=== PATIENT | male | born 1955 | race Caucasian/White ===

== ENCOUNTER 2021-07-28 15:43 | Outpatient (CLI) | payer MEDICARE | END 2021-07-28 15:44 | disposition home or self-care (01) | LOC: BICCT 15:43 | PROVIDERS: ATTEND Family Medicine | DX: Z12.2 Encounter for screening for malignant neoplasm of respiratory organs (principal); F17.210 Nicotine dependence, cigarettes, uncomplicated; J43.9 Emphysema, unspecified; J98.4 Other disorders of lung; I25.10 Atherosclerotic heart disease of native coronary artery without angina pectoris; I70.0 Atherosclerosis of aorta; I05.8 Other rheumatic mitral valve diseases; R91.1 Solitary pulmonary nodule | CPT/HCPCS: 71271 ==

== ENCOUNTER 2022-03-31 10:05 | Outpatient (CLI) | payer MEDICARE ==
[2022-03-31 22:42] LABS: SARS-CoV-2 PCR by NAA Not Detected (NotDetected)
== END 2022-03-31 10:06 | disposition home or self-care (01) ==
LOC: LABBT 10:05
PROVIDERS: ATTEND Internal Medicine Gastroenterology
DX: Z12.11 Encounter for screening for malignant neoplasm of colon (principal); Z20.822 Contact with and (suspected) exposure to COVID-19
CPT/HCPCS: U0003; U0005

== ENCOUNTER 2022-04-05 07:28 | Day surgery (SDC) | payer MEDICARE ==
[2022-03-31 11:19] VITALS: BMI 23.7
[2022-04-05] MEDS ORDERED: PROPOFOL 200 MG/20 ML VIAL ONE (10:22)
[2022-04-05] MEDS ORDERED: Lidocaine 1% PF 5 ML VIAL ONE (10:22)
== END 2022-04-05 12:08 | disposition home or self-care (01) ==
LOC: SDC 07:28
PROVIDERS: ATTEND Internal Medicine Gastroenterology
PROC: 0DBL8ZX Excision of Transverse Colon, Via Natural or Artificial Opening Endoscopic, Diagnostic (ICD-10-PCS; principal; 2022-04-05)
DX: Z12.11 Encounter for screening for malignant neoplasm of colon (principal); D12.3 Benign neoplasm of transverse colon; K57.30 Diverticulosis of large intestine without perforation or abscess without bleeding; K64.8 Other hemorrhoids; I10 Essential (primary) hypertension; G89.29 Other chronic pain; M54.9 Dorsalgia, unspecified; G62.9 Polyneuropathy, unspecified; F17.210 Nicotine dependence, cigarettes, uncomplicated; G47.30 Sleep apnea, unspecified; N40.0 Benign prostatic hyperplasia without lower urinary tract symptoms; Z79.899 Other long term (current) drug therapy; Z88.2 Allergy status to sulfonamides
CPT/HCPCS: 88305; C1776; J2704